=== PATIENT | male | born 1965 | race Caucasian/White ===

== ENCOUNTER 2019-02-12 07:11 | Emergency (ER) | payer SELFPAY ==
[~2019-02-12] VITALS: Ht 185.4 cm; Wt 90.1 kg
[2019-02-12 07:15] VITALS: Ht 185.4 cm; Wt 90.1 kg
[2019-02-12] MEDS ORDERED: PANTOPRAZOLE 40 MG INJ IV STA (07:28)
[2019-02-12] MEDS ORDERED: ONDANSETRON 4 MG INJ IV STA (07:38)
--- NOTE | 2019-02-12 09:43 | ERD ---
ER Documentation Chief Complaint Chief Complaint rectal bleeding bright red with BM 1xlast night & 3x this am HPI Patient is a 54-year-old male with no medical problems who presents with rectal bleeding. He had bright red blood from his rectum that started last night at 11 PM and then again today at 4:30 AM. He had 3 episodes. He had no abdominal pain. He has no pain with bowel movements. He has nausea and dizziness but no vomiting or diarrhea. He has never had a colonoscopy. He denies chest pain or shortness of breath. His primary doctor is Dr. Trinh. Upon review of old medical records this is the patient's first visit to the emergency department. ROS All systems reviewed and are negative except as per history of present illness. PMhx/Soc Medical and Surgical Hx: pt denies Medical Hx, pt denies Surgical Hx Hx Alcohol Use: Yes (SOCIALLY) Hx Substance Use: No Hx Tobacco Use: No Smoking Status: Never smoker FmHx Family History: No diabetes Physical Exam Vitals Vital Signs Date Temp Pulse Resp B/P (MAP) Pulse Ox O2 O2 Flow FiO2 Time Delivery Rate 02/12/19 70 16 127/88 95 Room Air 09:23 (101) 02/12/19 77 18 133/93 96 Room Air 08:30 (106) 02/12/19 78 16 133/96 95 Room Air 08:00 (108) 02/12/19 98.0 79 18 135/92 96 Room Air 07:50 (106) 02/12/19 98.0 82 18 161/93 96 07:15 (115) Physical Exam Const: No acute distress Head: Atraumatic Eyes: Normal Conjunctiva ENT: Normal External Ears, Nose and Mouth. Neck: Full range of motion. No meningismus. Resp: Clear to auscultation bilaterally Cardio: Regular rate and rhythm, no murmurs Abd: Soft, non tender, non distended. Normal bowel sounds Skin: No petechiae or rashes Back: No midline or flank tenderness Ext: No cyanosis, or edema Neur: Awake and alert Rectal: Dry blood around the anus without signs of active bleeding, no hemorrhoids Result Diagram: 02/12/19 0809 02/12/19 0809 Results 24 hrs Laboratory Tests Test 02/12/19 08:09 White Blood Count 4.5 10^3/ul Red Blood Count 4.16 10^6/ul Hemoglobin 12.0 g/dl Hematocrit 35.5 % Mean Corpuscular Volume 85.3 fl Mean Corpuscular Hemoglobin 28.8 pg Mean Corpuscular Hemoglobin Concent 33.8 g/dl Red Cell Distribution Width 13.0 % Platelet Count 186 10^3/UL Mean Platelet Volume 10.3 fl Immature Granulocytes % 0.700 % Neutrophils % 67.3 % Lymphocytes % 20.3 % Monocytes % 9.2 % Eosinophils % 1.6 % Basophils % 0.9 % Nucleated Red Blood Cells % 0.0 /100WBC Immature Granulocytes # 0.030 10^3/ul Neutrophils # 3.0 10^3/ul Lymphocytes # 0.9 10^3/ul Monocytes # 0.4 10^3/ul Eosinophils # 0.1 10^3/ul Basophils # 0.0 10^3/ul Nucleated Red Blood Cells # 0.0 10^3/ul Prothrombin Time 12.9 Sec Prothrombin Time Ratio 1.0 INR International Normalized Ratio 0.96 Activated Partial Thromboplast Time 30.0 Sec Sodium Level 140 mmol/L Potassium Level 4.3 mmol/L Chloride Level 108 mmol/L Carbon Dioxide Level 26 mmol/L Anion Gap 6 Blood Urea Nitrogen 15 mg/dl Creatinine 0.79 mg/dl Est Glomerular Filtrat Rate mL/min > 60 mL/min Glucose Level 103 mg/dl Calcium Level 8.7 mg/dl Total Bilirubin 0.5 mg/dl Direct Bilirubin 0.00 mg/dl Indirect Bilirubin 0.5 mg/dl Aspartate Amino Transf (AST/SGOT) 28 IU/L Alanine Aminotransferase (ALT/SGPT) 49 IU/L Alkaline Phosphatase 59 IU/L Troponin I < 0.012 ng/ml Total Protein 6.7 g/dl Albumin 3.8 g/dl Globulin 2.90 g/dl Albumin/Globulin Ratio 1.31 Current Medications Medications Dose Sig/Chilo Start Time Status Last (Trade) Ordered Route PRN Stop Time Admin Dose Reason Admin 40 mg ONCE STAT 02/12/19 DC 02/12/19 Pantoprazole IV 07:28 02/12/19 08:09 (Protonix 07:29 Iv) Ondansetron 4 mg ONCE STAT 02/12/19 DC 02/12/19 HCl (Zofran IV 07:38 02/12/19 08:09 Inj) 07:39 Procedures/MDM EKG read by me: Rate/Rhythm: Regular rate and rhythm at a rate of 78 Intervals: Normal Impression: No evidence of ischemia or arrhythmia Patient is a 54-year-old male with no medical problems who presents with rectal bleeding. He does not take blood thinning medicines and his PT/INR and PTT are normal. Hemoglobin is 12.0. Other laboratory studies are normal. I spoke with Dr. Trinh his primary doctor. We felt that outpatient follow-up with GI would be appropriate for outpatient colonoscopy. I do not believe he requires further work-up or admission of the hospital at this time. The patient can return for any worsening symptoms. He should follow-up within 24 to 48 hours. Govind-Blatchford Bleeding Score (GBS) from [employer] on 02/12/2019 All calculations should be rechecked by clinician prior to use RESULT SUMMARY: 2 points A GBS greater than zero suggests a High Risk GI bleed that is likely to require medical intervention: transfusion, endoscopy, or surgery. A higher GBS also correlated with a higher likelihood of needing intervention (scores ?6 are associated with >50% risk of needing intervention) INPUTS: Hemoglobin > 12 g/dL BUN > 15 mg/dL Initial systolic BP > 161 mm Hg Sex > 0 = Male Heart rate ?100 > 0 = No Melena present > 1 = Yes Recent syncope > 0 = No Hepatic disease history > 0 = No Cardiac failure present > 0 = No Departure Diagnosis: Primary Impression: Rectal hemorrhage Condition: Fair Patient Instructions: Rectal Bleed, Stable Referrals: CHRIS TRINH MD- (PCP) Additional Instructions: Llame al doctor MAANA y sudhakar genesis BELKIS PARA DENTRO DE 1-2 MITCHELL.Dgale a la secretaria que nosotros le instruimos hacer esta belkis.Avise o llame si valadez condicin se empeora antes de la belkis. Regresa aqui si peor o no mejor. MELINDA LIMON MD Feb 12, 2019 09:42
[2019-02-12 09:48] VITALS: BP 121/81; PULSE 72; RESP 16
== END 2019-02-12 10:14 | disposition home or self-care (01) ==
LOC: E/R 07:11
DX: K62.5 Hemorrhage of anus and rectum (principal); R40.2142 Coma scale, eyes open, spontaneous, at arrival to emergency department; R40.2252 Coma scale, best verbal response, oriented, at arrival to emergency department; R40.2362 Coma scale, best motor response, obeys commands, at arrival to emergency department; R11.0 Nausea; R42 Dizziness and giddiness
CPT/HCPCS: 36415; 80053; 84484; 85025; 85610; 85730; 86850; 86900; 86901; 93005; 96374; 96375; 99284; C9113; J2405

== ENCOUNTER 2019-02-14 17:13 | Inpatient (IN) | payer MEDICAID ==
[~2019-02-14] VITALS: Ht 185.4 cm; Wt 87.8 kg
--- NOTE | 2019-02-14 20:05 | ERD ---
ER Documentation Chief Complaint Chief Complaint RECTAL BLEEDING X 3 DAYS , FEELS DIZZY TODAY HPI 54-year-old male presenting with rectal bleeding that started 3 days ago. He states he has no associated abdominal pain or rectal pain. He has never had this before. he is having about 3 bowel movements a day, all with bright red bl ood. No history of colonoscopies. No chest pain or shortness of breath. He was here 2 days ago for evaluation and was discharged with follow-up with primary care doctor. However he has been unable to see his primary care doctor, Dr. Valdez, as he is out of town. Today the patient was feeling much more weak and dizzy, so he came back for evaluation. ROS All systems reviewed and are negative except as per history of present illness. Allergies Allergies: Coded Allergies: No Known Allergy (Unverified , 02/14/19) PMhx/Soc Medical and Surgical Hx: pt denies Medical Hx, pt denies Surgical Hx Hx Alcohol Use: Yes (SOCIALLY) Hx Substance Use: No Hx Tobacco Use: No FmHx Family History: No diabetes Physical Exam Vitals Vital Signs Date Temp Pulse Resp B/P (MAP) Pulse Ox O2 O2 Flow FiO2 Time Delivery Rate 02/14/19 71 10 130/101 98 Room Air 22:30 (111) 02/14/19 72 11 121/83 98 Room Air 21:30 (96) 02/14/19 90 13 124/85 100 Room Air 20:02 (98) 02/14/19 98.0 86 18 119/60 97 17:16 (79) Physical Exam Const: No acute distress Head: Atraumatic Eyes: Normal Conjunctiva ENT: Normal External Ears, Nose and Mouth. Neck: Full range of motion. No meningismus. Resp: Clear to auscultation bilaterally Cardio: Regular rate and rhythm, no murmurs Abd: Soft, non tender, non distended. Normal bowel sounds Rectal: No external hemorrhoids or anal fissures noted. Dark red blood in rectum. Skin: No petechiae or rashes Back: No midline or flank tenderness Ext: No cyanosis, or edema Neur: Awake and alert Psych: Normal Mood and Affect Result Diagram: 02/14/19190602/14/191906 Results 24 hrs Laboratory Tests Test 02/14/19 19:07 White Blood Count 5.2 10^3/ul Red Blood Count 3.46 10^6/ul Hemoglobin 10.1 g/dl Hematocrit 30.3 % Mean Corpuscular Volume 87.6 fl Mean Corpuscular Hemoglobin 29.2 pg Mean Corpuscular Hemoglobin Concent 33.3 g/dl Red Cell Distribution Width 13.1 % Platelet Count 211 10^3/UL Mean Platelet Volume 10.6 fl Immature Granulocytes % 1.000 % Neutrophils % 56.3 % Lymphocytes % 30.7 % Monocytes % 9.3 % Eosinophils % 1.9 % Basophils % 0.8 % Nucleated Red Blood Cells % 0.0 /100WBC Immature Granulocytes # 0.050 10^3/ul Neutrophils # 2.9 10^3/ul Lymphocytes # 1.6 10^3/ul Monocytes # 0.5 10^3/ul Eosinophils # 0.1 10^3/ul Basophils # 0.0 10^3/ul Nucleated Red Blood Cells # 0.0 10^3/ul Prothrombin Time 12.8 Sec Prothrombin Time Ratio 1.0 INR International Normalized Ratio 0.95 Activated Partial Thromboplast Time 30.7 Sec Stool Occult Blood POSITIVE Sodium Level 144 mmol/L Potassium Level 4.8 mmol/L Chloride Level 106 mmol/L Carbon Dioxide Level 29 mmol/L Anion Gap 9 Blood Urea Nitrogen 23 mg/dl Creatinine 1.06 mg/dl Est Glomerular Filtrat Rate mL/min > 60 mL/min Glucose Level 105 mg/dl Calcium Level 9.2 mg/dl Total Bilirubin 0.4 mg/dl Direct Bilirubin 0.00 mg/dl Indirect Bilirubin 0.4 mg/dl Aspartate Amino Transf (AST/SGOT) 24 IU/L Alanine Aminotransferase (ALT/SGPT) 48 IU/L Alkaline Phosphatase 47 IU/L Troponin I < 0.012 ng/ml Total Protein 6.9 g/dl Albumin 4.0 g/dl Globulin 2.90 g/dl Albumin/Globulin Ratio 1.37 Current Medications Medications Dose Sig/Chilo Start Time Status Last (Trade) Ordered Route PRN Stop Time Admin Dose Reason Admin Ondansetron 4 mg BRIDGE ORDER 02/14/19 HCl (Zofran PRN IV 22:30 Inj) NAUSEA/VOMITI 02/15/19 22:29 NG 650 mg ER BRIDGE 02/14/19 Acetaminophen PRN PO 22:30 (Tylenol .MILD PAIN 02/15/19 22:29 Tab) 1-3 OR TEMP Procedures/MDM EMERGENT LABS AND DIAGNOSTIC STUDIES: Lab Results above were reviewed and interpreted by me. CBC: Anemia with hemoglobin 10.1, decreased from 12 2 days ago BMP: Mild BUN elevation. No e/o clinically significant electrolyte abnormality severe acidosis, alkalosis, renal failure, diabetic ketoacidosis Coags within normal limits, no evidence of coagulopathy 12-lead EKG was interpreted by Sundar Cesar MD: Normal Sinus Rhythm with ventricular rate of 81 beats per minute Normal axis Normal intervals No acute ST or T wave changes suggestive of acute ischemia or STEMI. Initial Nursing notes reviewed. Previous Medical Records requested via the Electronic Health Record. EMERGENCY DEPARTMENT COURSE / MEDICAL DECISION MAKING: Patient presents with a symptomatic anemia due to likely lower GI bleed. Differential includes but is not limited to diverticulitis, AV malformation, intestinal tumor, internal hemorrhoids. I do not feel the patient requires tr ansfusion at this time but his hemoglobin has dropped from 2 days ago. He will require urgent evaluation by gastroenterology and further diagnostic work-up. At this time, patient is hemodynamically stable with no evidence of severe hemorrhage. Accepting Care Team: Current data and ongoing care discussed. Time: Time of admission Primary Provider: Dr. Quick Departure Diagnosis: Primary Impression: GI bleed GI bleed type/associated pathology: anorectal hemorrhage Qualified Codes: K62.5 - Hemorrhage of anus and rectum Additional Impression: Symptomatic anemia Condition: Serious TIERNEY CESAR MD Feb 14, 2019 20:05
[2019-02-14] MEDS ORDERED: ONDANSETRON 4 MG INJ IV PRN ×2 (22:30→23:30)
[2019-02-14] MEDS ORDERED: ACETAMINOPHEN 325 MG TAB PO PRN (22:30)
[2019-02-15 00:05] VITALS: BP 128/73; PULSE 74; RESP 18; Ht 185.4 cm; Wt 87.8 kg
[2019-02-15] MEDS: DEXTROSE 5%-0.45% NACL 1,000 ML IV SCH ×2 (00:28→12:50)
[2019-02-15 02:00] VITALS: BP 119/72; PULSE 71; RESP 17
[2019-02-15] MEDS: PANTOPRAZOLE (EC) 40 MG TAB PO SCH (05:46)
[2019-02-15 08:00] VITALS: BP 132/80; PULSE 76; RESP 20
[2019-02-15 14:00] VITALS: BP 133/77; PULSE 68; RESP 20
--- NOTE | 2019-02-15 17:51 | HP ---
Date/Time of Note Date/Time of Note DATE: 02/15/19 TIME: 17:49 Assessment/Plan VTE Prophylaxis Risk score (from [facility])>0 risk: 1 SCD applied (from [facility]): Yes Pharmacological prophylaxis: NA/contraindicated Pharm contraindication: bleeding Lines/Catheters IV Catheter Type (from [facility]): Peripheral IV Urinary Cath still in place: No Assessment/Plan Assessment/Plan - Rectal bleed. Pt needs colonoscopy. Dr Judd is asked to see pt in GI consultation. Continue IV fluids, Protonix. - Anemia. Continue to monitor H&H. Further recommendations based on clinical course. Plan of care discussed with Dr. Quick. Result Diagram: 02/15/19 0524 02/15/19 0524 Results 24hrs Laboratory Tests Test 02/14/19 19:07 02/15/19 05:24 White Blood Count 5.2 4.4 L Red Blood Count 3.46 L 3.20 L Hemoglobin 10.1 L 9.4 L Hematocrit 30.3 L 27.8 L Mean Corpuscular Volume 87.6 86.9 Mean Corpuscular Hemoglobin 29.2 29.4 Mean Corpuscular Hemoglobin Concent 33.3 33.8 Red Cell Distribution Width 13.1 13.1 Platelet Count 211 190 Mean Platelet Volume 10.6 H 10.7 H Immature Granulocytes % 1.000 H 1.100 H Neutrophils % 56.3 50.6 Lymphocytes % 30.7 32.3 Monocytes % 9.3 10.5 Eosinophils % 1.9 4.8 Basophils % 0.8 0.7 Nucleated Red Blood Cells % 0.0 0.0 Immature Granulocytes # 0.050 H 0.050 H Neutrophils # 2.9 2.2 Lymphocytes # 1.6 1.4 Monocytes # 0.5 0.5 Eosinophils # 0.1 0.2 Basophils # 0.0 0.0 Nucleated Red Blood Cells # 0.0 0.0 Prothrombin Time 12.8 Prothrombin Time Ratio 1.0 INR International Normalized Ratio 0.95 Activated Partial Thromboplast Time 30.7 Stool Occult Blood POSITIVE Sodium Level 144 140 Potassium Level 4.8 3.9 Chloride Level 106 105 Carbon Dioxide Level 29 29 Anion Gap 9 6 Blood Urea Nitrogen 23 H 18 Creatinine 1.06 0.84 Est Glomerular Filtrat Rate mL/min > 60 > 60 Glucose Level 105 113 Calcium Level 9.2 8.1 L Total Bilirubin 0.4 Direct Bilirubin 0.00 Indirect Bilirubin 0.4 Aspartate Amino Transf (AST/SGOT) 24 Alanine Aminotransferase (ALT/SGPT) 48 Alkaline Phosphatase 47 Troponin I < 0.012 Total Protein 6.9 Albumin 4.0 Globulin 2.90 Albumin/Globulin Ratio 1.37 HPI/ROS Admit Date/Time Admit Date/Time Feb 14, 2019 at 22:03 Hx of Present Illness Patient is a very pleasant 54-year-old gentleman who denies any chronic conditions. Patient admitted to the emergency room with complaints of rectal bleeding which is been going on for 3 days which was associated with abdominal pain. Patient was evaluated in the emergency room 2 days ago and was discharged with recommendation to follow-up with his primary doctor. Patient was unable to see his primary doctor and felt dizzy and generally weak and came back to the emergency room for further evaluation. ROS 12 point review of system is negative except for what mentioned in HPI PMH/Family/Social Past Medical History Medical History: no pertinent history Medications Current Medications Ondansetron HCl (Zofran Inj) 4 mg BRIDGE ORDER PRN IV NAUSEA/VOMITING; Start 02/14/19 at 22:30; Stop 02/15/19 at 22:29 Acetaminophen (Tylenol Tab) 650 mg ER BRIDGE PRN PO .MILD PAIN 1-3 OR TEMP; Start 02/14/19 at 22:30; Stop 02/15/19 at 22:29 Dextrose/Sodium Chloride 1,000 ml @ 75 mls/hr [id number] IV Last administered on 02/15/19at 00:28; Admin Dose 75 MLS/HR; Start 02/14/19 at 23:30 Pantoprazole (Protonix Tab) 40 mg DAILY@06 PO Last administered on 02/15/19at 05:46; Admin Dose 40 MG; Start 02/15/19 at 06:00 Acetaminophen (Tylenol Tab) 500 mg Q4H PRN PO MILD PAIN(1-3)OR ELEVATED TEMP; Start 02/14/19 at 23:30 Ondansetron HCl (Zofran Inj) 4 mg Q4H PRN IV NAUSEA AND/OR VOMITING; Start 02/14/19 at 23:30 Coded Allergies: Penicillins (Unverified Allergy, Unknown, SWELLING, 02/14/19) Past Surgical History Past Surgical Hx: no surgical history Family History Significant Family History: no pertinent family hx Social History Alcohol Use: none Smoking Status: Never smoker Drug Use: none Exam/Review of Systems Vital Signs Vitals Vital Signs Date Temp Pulse Resp B/P (MAP) Pulse Ox O2 O2 Flow FiO2 Time Delivery Rate 02/15/19 98.8 68 20 133/77 96 14:00 (95) 02/14/19 Room Air 23:30 Intake and Output 02/14/19 02/14/19 02/15/19 1515:00 23:00 07:00 IntakeIntake Total 375 ml BalanceBalance 375 ml Exam Constitutional: alert, oriented Respiratory: clear to auscultation Cardiovascular: nl pulses Gastrointestinal: soft, non-tender Musculoskeletal: nl extremities to inspection Extremities: normal pulses Neurological: nl mental status Skin: nl RAMON Hanson Feb 15, 2019 17:51
[2019-02-15] MEDS ORDERED: PEG/ELECTROLYTES 4L BTL PO ONE (19:30)
[2019-02-15 20:00] VITALS: BP 125/70; PULSE 82; RESP 18
[2019-02-16] VITALS (12 sets, daily range): BP systolic 102–140; BP diastolic 60–77; PULSE 67–85; RESP 15–20
--- NOTE | 2019-02-16 01:57 | CONS ---
DATE OF ADMISSION: 02/14/2019 DATE OF CONSULTATION: TYPE OF CONSULTATION: Gastroenterology. Dear Dr. Quick: Thank you for asking me to see Mr. Ko in GI consultation. HISTORY OF PRESENT ILLNESS: As you know, patient is a 54-year-old male [facility] of history of bloody stools which he has been experiencing for the past 4 days. No h istory of diarrhea, no history of constipation. No abdominal pain, no nausea, no vomiting, no hemate mesis and no history of weight loss. Does not smoke or drink. Does not take any nonsteroidal anti-i nflammatory medications. He does not drink alcohol. SOCIAL HISTORY: He works as a city driver. FAMILY HISTORY: Unremarkable. PHYSICAL EXAMINATION: GENERAL: The patient is a 54-year-old male who at this time is alert, well built. VITAL SIGNS: Afebrile. CARDIOVASCULAR: Normal heart sounds. RESPIRATORY: Normal breath sounds. ABDOMEN: Shows soft abdomen with no palpable masses, no tenderness, no distention. LABORATORY WORKUP: Hemoglobin is 10.1, it dropped to 9.4. WBC count 4400, platelets 180,000. BUN 1 8 and creatinine 0.84. The potassium is 3.9. Prothrombin time INR is 0.95. CLINICAL IMPRESSION: The patient presenting with history of rectal bleeding. Whether the source is bleeding duodenal ulcer or a colonic source or small bowel source is not very clear. Rule out bleeding ulcer disease, colonic pathology. PLAN: Recommend upper endoscopy as well as lower endoscopy, and will keep you posted with the result s. Once again, Dr. Quick, thank you, and ____ thank you for this consultation. Dictated By: LEANDRA STUART/NTS Conf#: [id number] DID#: [id number] CC: AGUSTIN QUICK MD;*EndCC*
[2019-02-16] MEDS: DEXTROSE 5%-0.45% NACL 1,000 ML IV SCH ×3 (02:15→22:34)
[2019-02-16] MEDS: PANTOPRAZOLE (EC) 40 MG TAB PO SCH (04:38)
--- NOTE | 2019-02-16 09:46 | PREAC ---
Date/Time of Note Date/Time of Note DATE: 02/16/19 TIME: 09:45 Anesthesia Eval and Record Evaluation Time Pre-Procedure Interview DATE: 02/16/19 TIME: 09:45 Age 54 Sex male NPO: 8 hrs Preoperative diagnosis bloody stools Planned procedure EGD and colonoscopy Past Medical History Past Medical History: None Hepatic: Other GI: Other (bloody stools) Heme: Anemia Surgery & Anesthesia Issues No known issue (hx dental procedure with anesthesia-no anesthesia complications) Meds Anticoagulation: No Beta Janeen within 24 hr: No Reason Beta Janeen not given: Pt. not on B-Janeen No Active Prescriptions or Reported Meds Current Medications Dextrose/Sodium Chloride 1,000 ml @ 75 mls/hr [id number] IV Last administered on 02/16/19at 02:15; Admin Dose 75 MLS/HR; Start 02/14/19 at 23:30 Pantoprazole (Protonix Tab) 40 mg DAILY@06 PO Last administered on 02/15/19at 05:46; Admin Dose 40 MG; Start 02/15/19 at 06:00 Acetaminophen (Tylenol Tab) 500 mg Q4H PRN PO MILD PAIN(1-3)OR ELEVATED TEMP; Start 02/14/19 at 23:30 Ondansetron HCl (Zofran Inj) 4 mg Q4H PRN IV NAUSEA AND/OR VOMITING; Start 05/26 at 23:30 Meds reviewed: Yes Allergies Coded Allergies: Penicillins (Unverified Allergy, Unknown, SWELLING, 02/14/19) Allergies Reviewed: Yes Labs/Studies Labs Reviewed: Reviewed by anesthesiologist Result Diagram: 02/16/19 0539 02/15/19 0524 Laboratory Tests 02/16/19 05:39 test: N/A Studies: ECG (NSR) Pre-procedure Exam Last vitals Vital Signs Date Temp Pulse Resp B/P (MAP) Pulse Ox O2 O2 Flow FiO2 Time Delivery Rate 02/16/19 98.6 76 20 116/73 96 08:00 (87) 02/14/19 Room Air 23:30 Airway: Adequate mouth opening, Adequate thyromental dist Mallampati: Mallampati II Teeth: Normal (lower partial dentures are out) Lung: Normal Heart: Normal ASA Physical Status ASA physical status: 2 Emergency: None Planned Anesthetic General/MAC: MAC, TIVA Planned Pain Management Parenteral pain med, Local by surgeon Pre-operative Attestations Prior to commencing anesthesia and surgery, the patient was re-evaluated, there was verification of: *The patient's identity *The results of appropriate recent lab work and preoperative vital signs *The above evaluation not changing prior to induction *Anesthetic plan, risk benefits, alternative and complications discussed with patient/family; questions answered; patient/family understands, accepts and wishes to proceed. LUIS FELIPE GIBBS Feb 16, 2019 09:46
[2019-02-16] MEDS ORDERED: PROPOFOL 60 ML ONE (10:31)
[2019-02-16] MEDS ORDERED: LIDOCAINE 100 MG SYRINGE ONE (10:31)
[2019-02-16] MEDS ORDERED: FENTAnyl 50 MCG/ML VIAL ONE (10:31)
--- NOTE | 2019-02-16 11:25 | PAC ---
Date/Time of Note Date/Time of Note DATE: 02/16/19 TIME: 11:25 Post-Anesthesia Notes Post-Anesthesia Note Last documented vital signs Vital Signs Date Temp Pulse Resp B/P (MAP) Pulse Ox O2 O2 Flow FiO2 Time Delivery Rate 02/16/19 98.7 73 16 140/77 99 Room Air 10:39 (98) Activity: WNL Respiratory function: WNL Cardiovascular function: WNL Mental status: Baseline Pain reasonably controlled: Yes Hydration appropriate: Yes Nausea/Vomiting absent: Yes Danny Child M.D. Feb 16, 2019 11:25
--- NOTE | 2019-02-16 15:15 | PN ---
Date/Time of Note Date/Time of Note DATE: 02/16/19 TIME: 15:11 Assessment/Plan VTE Prophylaxis Risk score (from [facility])>0 risk: 3 SCD applied (from [facility]): Yes SCD contraindicated: other Pharmacological prophylaxis: other Pharm contraindication: other Lines/Catheters IV [facility]ter Type (from [facility]): Peripheral IV Urinary Cath still in place: No Assessment/Plan Assessment/Plan - Rectal bleed. Pt needs colonoscopy. - per Dr Judd in GI consultation. - SP egd today - Continue IV fluids, Protonix. - Anemia. Continue to monitor H&H. Further recommendations based on clinical course. Plan of care discussed with Dr. Quick. Result Diagram: 02/16/19 0539 02/15/19 0524 Results 24hrs Laboratory Tests Test 02/16/19 05:39 White Blood Count 4.7 L Red Blood Count 3.17 L Hemoglobin 9.4 L Hematocrit 27.8 L Mean Corpuscular Volume 87.7 Mean Corpuscular Hemoglobin 29.7 Mean Corpuscular Hemoglobin Concent 33.8 Red Cell Distribution Width 13.1 Platelet Count 196 Mean Platelet Volume 10.2 Immature Granulocytes % 0.600 H Neutrophils % 59.3 Lymphocytes % 28.2 Monocytes % 8.3 Eosinophils % 3.0 Basophils % 0.6 Nucleated Red Blood Cells % 0.0 Immature Granulocytes # 0.030 Neutrophils # 2.8 Lymphocytes # 1.3 Monocytes # 0.4 Eosinophils # 0.1 Basophils # 0.0 Nucleated Red Blood Cells # 0.0 Subjective 24 Hr Interval Summary Free Text/Dictation SP EGD today; denies any gi pain no new events reported last night ENT: no complaints Respiratory: no complaints Cardiovascular: no complaints Gastrointestinal: no complaints Genitourinary: no complaints Musculoskeletal: no complaints Skin: no complaints Neurologic: no complaints Endocrine: no complaints Lymphatic: no complaints Psychological: nl mood/affect Immunologic: no complaints Exam/Review of Systems Exam Vitals Vital Signs Date Temp Pulse Resp B/P (MAP) Pulse Ox O2 O2 Flow FiO2 Time Delivery Rate 02/16/19 67 16 122/72 96 Room Air 11:57 (89) 02/16/19 98.4 11:27 Intake and Output 02/15/19 02/15/19 02/16/19 1515:00 23:00 07:00 IntakeIntake Total 700 ml 750 ml 300 ml BalanceBalance 700 ml 750 ml 300 ml Constitutional: alert, oriented, well developed Psych: nl mood/affect Head: normocephalic Eyes: nl lids, nl sclera ENMT: nl external ears & nose Neck: non-tender Respiratory: clear to auscultation Cardiovascular: nl pulses, other (s1s2) Gastrointestinal: soft, non-tender Musculoskeletal: nl extremities to inspection Extremities: normal pulses Neurological: nl mental status, nl speech Skin: nl turgor Lymph: nontender Results Results 24hrs Laboratory Tests Test 02/16/19 05:39 White Blood Count 4.7 L Red Blood Count 3.17 L Hemoglobin 9.4 L Hematocrit 27.8 L Mean Corpuscular Volume 87.7 Mean Corpuscular Hemoglobin 29.7 Mean Corpuscular Hemoglobin Concent 33.8 Red Cell Distribution Width 13.1 Platelet Count 196 Mean Platelet Volume 10.2 Immature Granulocytes % 0.600 H Neutrophils % 59.3 Lymphocytes % 28.2 Monocytes % 8.3 Eosinophils % 3.0 Basophils % 0.6 Nucleated Red Blood Cells % 0.0 Immature Granulocytes # 0.030 Neutrophils # 2.8 Lymphocytes # 1.3 Monocytes # 0.4 Eosinophils # 0.1 Basophils # 0.0 Nucleated Red Blood Cells # 0.0 Medications Medication Current Medications Dextrose/Sodium Chloride 1,000 ml @ 75 mls/hr [id number] IV Last administered on 02/16/19at 02:15; Admin Dose 75 MLS/HR; Start 02/14/19 at 23:30 Pantoprazole (Protonix Tab) 40 mg DAILY@06 PO Last administered on 02/15/19at 0 5:46; Admin Dose 40 MG; Start 02/15/19 at 06:00 Acetaminophen (Tylenol Tab) 500 mg Q4H PRN PO MILD PAIN(1-3)OR ELEVATED TEMP; Start 02/14/19 at 23:30 Ondansetron HCl (Zofran Inj) 4 mg Q4H PRN IV NAUSEA AND/OR VOMITING; Start 02/14/19 at 23:30 DEBI DE LA CRUZ Feb 16, 2019 15:15
[2019-02-16] MEDS: ACETAMINOPHEN 500 MG TAB PO PRN (17:21)
[2019-02-17 02:01] VITALS: BP 109/62; PULSE 83; RESP 18
[2019-02-17] MEDS: PANTOPRAZOLE (EC) 40 MG TAB PO SCH (05:44)
[2019-02-17] MEDS: DEXTROSE 5%-0.45% NACL 1,000 ML IV SCH ×2 (05:44→23:05)
[2019-02-17 08:03] VITALS: BP 115/73; PULSE 69; RESP 16
--- NOTE | 2019-02-17 12:11 | PN ---
Date/Time of Note Date/Time of Note DATE: 02/17/19 TIME: 12:11 Assessment/Plan VTE Prophylaxis Risk score (from Ns)>0 risk: 4 SCD applied (from Ns): Yes Pharmacological prophylaxis: NA/contraindicated Pharm contraindication: bleeding Lines/Catheters IV Catheter Type (from Nrsg): Peripheral IV Urinary Cath still in place: No Assessment/Plan Hospital Course - Rectal bleed. Pt needs colonoscopy. - per Dr Judd in GI consultation. - SP egd today - Continue IV fluids, Protonix. - Anemia. Continue to monitor H&H. Result Diagram: 02/16/1939 02/15/19523 Subjective 24 Hr Interval Summary Free Text/Dictation Patient denies any complaints Exam/Review of Systems Exam Vitals Vital Signs Date Temp Pulse Resp B/P (MAP) Pulse Ox O2 O2 Flow FiO2 Time Delivery Rate 02/17/19 98.2 69 16 115/73 95 08:03 (87) 02/17/19 Room Air 08:00 Intake and Output 02/16/19 02/16/19 02/17/19 1515:00 23:00 07:00 IntakeIntake Total 650 ml 252 ml BalanceBalance 650 ml 252 ml Constitutional: well developed Head: normocephalic, atraumatic Neck: supple Respiratory: clear to auscultation Cardiovascular: regular rate and rhythm Gastrointestinal: soft, non-tender Extremities: normal pulses Medications Medication Current Medications Dextrose/Sodium Chloride 1,000 ml @ 75 mls/hr [id number] IV Last administered on 02/17/19 05:44; Admin Dose 75 MLS/HR; Start 02/14/19 at 23:30 Pantoprazole (Protonix Tab) 40 mg DAILY@06 PO Last administered on 02/17/19at 05:44; Admin Dose 40 MG; Start 02/15/19 at 06:00 Acetaminophen (Tylenol Tab) 500 mg Q4H PRN PO MILD PAIN(1-3)OR ELEVATED TEMP Last administered on 02/16/19at 17:21; Admin Dose 500 MG; Start 02/14/19 at 23:30 Ondansetron HCl (Zofran Inj) 4 mg Q4H PRN IV NAUSEA AND/OR VOMITING; Start 02/14/19 at 23:30 PURVI BUCHANAN Feb 17, 2019 12:11
[2019-02-17 14:37] VITALS: BP 130/58; PULSE 90; RESP 16
[2019-02-17 20:00] VITALS: BP 117/71; PULSE 78; RESP 17
[2019-02-17] MEDS: ACETAMINOPHEN 500 MG TAB PO PRN (23:05)
[2019-02-18 02:00] VITALS: BP 110/63; PULSE 76; RESP 17
[2019-02-18] MEDS: PANTOPRAZOLE (EC) 40 MG TAB PO SCH ×2 (05:37→06:23)
[2019-02-18] MEDS: ACETAMINOPHEN 500 MG TAB PO PRN ×3 (05:38→21:13)
[2019-02-18 07:28] VITALS: BP 129/70; PULSE 73; RESP 16
--- NOTE | 2019-02-18 11:24 | PN ---
Date/Time of Note Date/Time of Note DATE: 02/18/19 TIME: 11:23 Assessment/Plan VTE Prophylaxis Risk score (from Nsg)>0 risk: 4 SCD applied (from Nsg): Yes Pharmacological prophylaxis: LMWH Lines/Catheters IV Catheter Type (from Nrsg): Peripheral IV Urinary Cath still in place: No Assessment/Plan Hospital Course - Rectal bleed. Pt needs colonoscopy. - per Dr Judd in GI consultation. - SP egd today - Continue IV fluids, Protonix. - Anemia. Continue to monitor H&H. Result Diagram: 02/16/1939 02/15/19523 Subjective 24 Hr Interval Summary Free Text/Dictation Patient is doing well with no further abdominal pain or bleeding Exam/Review of Systems Exam Vitals Vital Signs Date Temp Pulse Resp B/P (MAP) Pulse Ox O2 O2 Flow FiO2 Time Delivery Rate 02/18/19 97.6 73 16 129/70 96 Room Air 07:28 (89) Intake and Output 02/17/19 02/17/19 02/18/19 1515:00 23:00 07:00 IntakeIntake Total 200 ml 837 ml BalanceBalance 200 ml 837 ml Constitutional: well developed Head: normocephalic, atraumatic Neck: supple Respiratory: diminished breath sounds Cardiovascular: regular rate and rhythm Gastrointestinal: soft, non-tender Extremities: normal pulses Medications Medication Current Medications Pantoprazole (Protonix Tab) 40 mg DAILY@06 PO Last administered on 02/18/19at 05:37; Admin Dose 40 MG; Start 02/15/19 at 06:00 Acetaminophen (Tylenol Tab) 500 mg Q4H PRN PO MILD PAIN(1-3)OR ELEVATED TEMP Last administered on 02/18/19at 10:02; Admin Dose 500 MG; Start 02/14/19 at 23:30 Ondansetron HCl (Zofran Inj) 4 mg Q4H PRN IV NAUSEA AND/OR VOMITING; Start 02/14/19 at 23:30 PURVI BUCHANAN Feb 18, 2019 11:24
[2019-02-18 14:11] VITALS: BP 136/63; PULSE 86; RESP 16
[2019-02-18 20:00] VITALS: BP 110/64; PULSE 77; RESP 16
[2019-02-19 02:00] VITALS: BP 137/66; PULSE 76; RESP 19
[2019-02-19] MEDS: PANTOPRAZOLE (EC) 40 MG TAB PO SCH (06:20)
[2019-02-19 08:24] VITALS: BP 130/80; PULSE 68; RESP 18
[2019-02-19] MEDS: ACETAMINOPHEN 500 MG TAB PO PRN (09:59)
[2019-02-19 15:03] VITALS: BP 114/66; PULSE 86; RESP 18
--- NOTE | 2019-02-19 18:27 | PN ---
Date/Time of Note Date/Time of Note DATE: 02/19/19 TIME: 18:25 Assessment/Plan VTE Prophylaxis Risk score (from Ns)>0 risk: 1 SCD applied (from Ns): Yes Pharmacological prophylaxis: NA/contraindicated Pharm contraindication: bleeding Lines/Catheters IV [facility] Type (from [facility]): Peripheral IV Urinary Cath still in place: No Assessment/Plan Hospital Course Assessment/Plan - Rectal bleed. S/p EGD and colonoscopy. F/up on patho results. Dr Judd is following in GI consultation. Continue IV fluids, Protonix. - Anemia. Continue to monitor H&H. Further recommendations based on clinical course. Plan of care discussed with Dr. Quick. Result Diagram: 02/19/19 0525 02/19/19 0525 Results 24hrs Laboratory Tests Test 02/19/19 05:25 White Blood Count 5.2 Red Blood Count 3.38 L Hemoglobin 9.9 L Hematocrit 30.3 L Mean Corpuscular Volume 89.6 Mean Corpuscular Hemoglobin 29.3 Mean Corpuscular Hemoglobin Concent 32.7 Red Cell Distribution Width 13.6 Platelet Count 248 # Mean Platelet Volume 10.5 H Immature Granulocytes % 1.200 H Neutrophils % 57.4 Lymphocytes % 28.1 Monocytes % 9.4 Eosinophils % 3.3 Basophils % 0.6 Nucleated Red Blood Cells % 0.0 Immature Granulocytes # 0.060 H Neutrophils # 3.0 Lymphocytes # 1.5 Monocytes # 0.5 Eosinophils # 0.2 Basophils # 0.0 Nucleated Red Blood Cells # 0.0 Sodium Level 143 Potassium Level 4.0 Chloride Level 106 Carbon Dioxide Level 29 Anion Gap 8 Blood Urea Nitrogen 14 Creatinine 0.97 Est Glomerular Filtrat Rate mL/min > 60 Glucose Level 96 Calcium Level 8.5 Exam/Review of Systems Exam Vitals Vital Signs Date Temp Pulse Resp B/P (MAP) Pulse Ox O2 O2 Flow FiO2 Time Delivery Rate 02/19/19 98.0 86 18 114/66 97 15:03 (82) 02/18/19 Room Air 14:11 Intake and Output 02/18/19 02/18/19 02/19/19 1515:00 23:00 07:00 IntakeIntake Total 360 ml 800 ml BalanceBalance 360 ml 800 ml Exam Constitutional: alert, oriented Respiratory: clear to auscultation Cardiovascular: nl pulses Gastrointestinal: soft, non-tender Musculoskeletal: nl extremities to inspection Extremities: normal pulses Neurological: nl mental status Skin: nl turgor Results Results 24hrs Laboratory Tests Test 02/19/19 05:25 White Blood Count 5.2 Red Blood Count 3.38 L Hemoglobin 9.9 L Hematocrit 30.3 L Mean Corpuscular Volume 89.6 Mean Corpuscular Hemoglobin 29.3 Mean Corpuscular Hemoglobin Concent 32.7 Red Cell Distribution Width 13.6 Platelet Count 248 # Mean Platelet Volume 10.5 H Immature Granulocytes % 1.200 H Neutrophils % 57.4 Lymphocytes % 28.1 Monocytes % 9.4 Eosinophils % 3.3 Basophils % 0.6 Nucleated Red Blood Cells % 0.0 Immature Granulocytes # 0.060 H Neutrophils # 3.0 Lymphocytes # 1.5 Monocytes # 0.5 Eosinophils # 0.2 Basophils # 0.0 Nucleated Red Blood Cells # 0.0 Sodium Level 143 Potassium Level 4.0 Chloride Level 106 Carbon Dioxide Level 29 Anion Gap 8 Blood Urea Nitrogen 14 Creatinine 0.97 Est Glomerular Filtrat Rate mL/min > 60 Glucose Level 96 Calcium Level 8.5 Medications Medication Current Medications Pantoprazole (Protonix Tab) 40 mg DAILY@06 PO Last administered on 02/19/19at 06:20; Admin Dose 40 MG; Start 02/15/19 at 06:00 Acetaminophen (Tylenol Tab) 500 mg Q4H PRN PO MILD PAIN(1-3)OR ELEVATED TEMP Last administered on 02/19/19at 09:59; Admin Dose 500 MG; Start 02/14/19 at 23:30 Ondansetron HCl (Zofran Inj) 4 mg Q4H PRN IV NAUSEA AND/OR VOMITING; Start 02/14/19 at 23:30 RAMON ALCAZAR Feb 19, 2019 18:27
--- NOTE | 2019-02-19 19:19 | CONS ---
Consultation Date/Type/Reason Admit Date/Time Feb 14, 2019 at 22:03 Initial Consult Date Date/Time of Note DATE: 02/19/19 TIME: 19:15 24 HR Interval Summary Free Text/Dictation pt has no rectal bleeding egd showed gastritis colonoscopy showedplan diverticulosis ' no h pylori pe neg plan ok to e/c with omeprazole 40mg qd for 1 month fallow pmd as op Exam/Review of Systems Exam Vitals Vital Signs Date Temp Pulse Resp B/P (MAP) Pulse Ox O2 O2 Flow FiO2 Time Delivery Rate 02/19/19 98.0 86 18 114/66 97 15:03 (82) 02/18/19 Room Air 14:11 Intake and Output 02/18/19 02/18/19 02/19/19 1515:00 23:00 07:00 IntakeIntake Total 360 ml 800 ml BalanceBalance 360 ml 800 ml Results Result Diagram: 02/19/19 0525 02/19/19 0525 Results 24hrs Laboratory Tests Test 02/19/19 05:25 White Blood Count 5.2 Red Blood Count 3.38 L Hemoglobin 9.9 L Hematocrit 30.3 L Mean Corpuscular Volume 89.6 Mean Corpuscular Hemoglobin 29.3 Mean Corpuscular Hemoglobin Concent 32.7 Red Cell Distribution Width 13.6 Platelet Count 248 # Mean Platelet Volume 10.5 H Immature Granulocytes % 1.200 H Neutrophils % 57.4 Lymphocytes % 28.1 Monocytes % 9.4 Eosinophils % 3.3 Basophils % 0.6 Nucleated Red Blood Cells % 0.0 Immature Granulocytes # 0.060 H Neutrophils # 3.0 Lymphocytes # 1.5 Monocytes # 0.5 Eosinophils # 0.2 Basophils # 0.0 Nucleated Red Blood Cells # 0.0 Sodium Level 143 Potassium Level 4.0 Chloride Level 106 Carbon Dioxide Level 29 Anion Gap 8 Blood Urea Nitrogen 14 Creatinine 0.97 Est Glomerular Filtrat Rate mL/min > 60 Glucose Level 96 Calcium Level 8.5 Medications Medication Current Medications Pantoprazole (Protonix Tab) 40 mg DAILY@06 PO Last administered on 02/19/19at 06:20; Admin Dose 40 MG; Start 02/15/19 at 06:00 Acetaminophen (Tylenol Tab) 500 mg Q4H PRN PO MILD PAIN(1-3)OR ELEVATED TEMP Last administered on 02/19/19at 09:59; Admin Dose 500 MG; Start 02/14/19 at 23:30 Ondansetron HCl (Zofran Inj) 4 mg Q4H PRN IV NAUSEA AND/OR VOMITING; Start 02/14/19 at 23:30 LEANDRA ALEXANDER MD Feb 19, 2019 19:19
[2019-02-19 19:47] VITALS: BP 125/75; PULSE 85; RESP 18
[2019-02-20 02:05] VITALS: BP 113/56; PULSE 72; RESP 17
[2019-02-20] MEDS: PANTOPRAZOLE (EC) 40 MG TAB PO SCH (05:47)
[2019-02-20] MEDS: ACETAMINOPHEN 500 MG TAB PO PRN (05:48)
[2019-02-20 08:26] VITALS: BP 129/71; PULSE 72; RESP 18
[2019-02-20] MEDS ORDERED: PANT40TA4 PO (11:36)
[2019-02-20 14:08] VITALS: BP 126/74; PULSE 77; RESP 18
--- NOTE | 2019-02-20 21:20 | DS ---
Date/Time of Note Date/Time of Note DATE: 02/20/19 TIME: 21:14 Discharge Summary Admission/Discharge Info Admit Date/Time Feb 14, 2019 at 22:03 Discharge Date/Time Feb 20, 2019 at 15:10 Patient Condition: Stable Hx of Present Illness Patient is a very pleasant 54-year-old gentleman who denies any chronic conditions. Patient admitted to the emergency room with complaints of rectal bleeding which is been going on for 3 days which was associated with abdominal pain. Patient was evaluated in the emergency room 2 days ago and was discharged with recommendation to follow-up with his primary doctor. Patient was unable to see his primary doctor and felt dizzy and generally weak and came back to the emergency room for further evaluation. Hospital Course - Rectal bleed,resolved. polyps and diverticulosis per colonoscopy. Dr Judd is following in GI consultation. PT underwent EGD and colonoscopy. Stable H&H. - Gastritis per EGD, path is neg for H pylori, neg for malignancy, continue PPI. - Anemia. Continue to monitor H&H. Plan of care discussed with Dr. Quick. Home Meds Active Scripts Pantoprazole* (Pantoprazole*) 40 Mg Tablet., 40 MG PO DAILY@06 for 30 Days Prov:RAMON ALCAZAR 02/20/19 Primary Care Provider Marcos Valdez Time spent on discharge: > 30 minutes RAMON ALCAZAR Feb 20, 2019 21:20
== END 2019-02-20 15:10 | disposition home or self-care (01) | DRG 379 ==
LOC: E/R 17:13 → PP2 22:03
PROVIDERS: ADMIT Internal Medicine; ATTEND Internal Medicine
PROC: 0DBP8ZX Excision of Rectum, Via Natural or Artificial Opening Endoscopic, Diagnostic (ICD-10-PCS; principal; 2019-02-16 12:30)
PROC: 0DB68ZX Excision of Stomach, Via Natural or Artificial Opening Endoscopic, Diagnostic (ICD-10-PCS; 2019-02-16 12:30)
DX: K62.5 Hemorrhage of anus and rectum (principal); D64.9 Anemia, unspecified; K29.70 Gastritis, unspecified, without bleeding; K62.1 Rectal polyp; K57.30 Diverticulosis of large intestine without perforation or abscess without bleeding; K20.9 Esophagitis, unspecified
CPT/HCPCS: 80048; 80053; 82270; 84484; 85025; 85610; 85730; 88305; 88312; 93005; J2001; J3010; J7042